=== PATIENT | male | born 1990 | race Caucasian/White ===

== ENCOUNTER 2016-10-08 21:42 | Emergency (ER) | payer OTHER ==
[2016-10-08] MEDS ORDERED: SODIUM CHLORIDE 0.9% 2,000 ML ONE (22:38)
== END 2016-10-09 00:22 | disposition home or self-care (01) ==
LOC: ER 21:42
DX: E86.0 Dehydration (principal); I95.1 Orthostatic hypotension; J10.1 Influenza due to other identified influenza virus with other respiratory manifestations; R00.0 Tachycardia, unspecified
CPT/HCPCS: 36415; 71010; 80053; 81003; 83605; 85025; 87040; 87088; 87804; 96360; 96361

== ENCOUNTER 2016-11-07 09:32 | Emergency (ER) | payer OTHER ==
[2016-11-07] MEDS ORDERED: ONDANSETRON 4 MG VIAL ONE (10:55)
[2016-11-07] MEDS ORDERED: SODIUM CHLORIDE 0.9% 1,000 ML ONE (10:55)
== END 2016-11-07 12:21 | disposition home or self-care (01) ==
LOC: ER 09:32
DX: R11.2 Nausea with vomiting, unspecified (principal); R19.7 Diarrhea, unspecified; R10.84 Generalized abdominal pain; F17.220 Nicotine dependence, chewing tobacco, uncomplicated
CPT/HCPCS: 36415; 74022; 80053; 83690; 85025; 96361; 96374; 99284; J2405